=== PATIENT | female | born 1985 | race Caucasian/White ===

== ENCOUNTER 2021-05-21 10:43 | Outpatient (CLI) | payer OTHER ==
--- NOTE | 2021-05-21 15:03 | MRI Report ---
PROCEDURE: Lumbar Spine W/O INDICATIONS: LOW BACK PAIN TECHNIQUE: Noncontrast sagittal T1 spin echo and T2 fast echo, sagittal STIR, axial T1 and T2 fast spin echo thr ough the lumbar spine. In cases with scoliosis, additional coronal T2 fast spin echo may be performe d. COMPARISON: None. FINDINGS: Image quality: Motion artifact is noted. Alignment and Curvature: There is normal bony alignment. Bone Marrow: Marrow is of normal overall signal. Scattered foci of T1-weighted hyperintensity and T2-weighted hyperintensity are seen, without increased STIR signal. 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 No acute vertebral body compression fractures. Spinal Cord: Conus medullaris terminates at the L1-L2 level. Visualized cord demonstrates normal si gnal and size. Paraspinous Soft Tissues: No paravertebral masses. T12-L1: Normal in appearance. L1-L2: Normal in appearance. L2-L3: Normal in appearance. L3-L4: No significant abnormality is seen. L4-L5: The disc height is well-preserved. There is loss of disc signal seen. Note is made of an heike ular fissure posteriorly. Mild disc bulge is seen, which is eccentric to the left. Mild facet hyper trophy is seen. Mild bilateral neural foraminal narrowing is seen. No significant central canal na rrowing is seen. L5-S1: Mild loss of disc height and disc signal are seen. Reactive marrow endplate changes are see n, which are on hypointense on T1-weighted and hyperintense T2-weighted imaging, with associated in creased STIR signal. These imaging findings are most consistent with endplate edema (Modic type 1 young nge). Moderate disc bulge is seen, with a central/right disc extrusion, with superior migration of t he disc material. The disc extrusion measures 1.7 cm craniocaudal in total. There is a smaller appare nt sequestered fragment seen within the extruded material that measures up to 1 cm. An associated heike ular fissure can be seen. There is at least moderate bilateral neuroforaminal narrowing seen. Moderat e central canal narrowing is seen. Mass effect can be seen upon the regional nerve roots, although mo st notably upon the transiting right S1 nerve root. IMPRESSION: At the L5-S1 level, there is a prominent central/right disc extrusion, with apparent seq uestered disc fragment. There is associated mass effect, including upon the right S1 nerve root. Reviewed by: Antonio Perez MD on 05/21/2021 2:01 PM [facility] Approved by: Antonio Perez MD on 05/21/2021 2:01 PM [facility] Station ID: [id number]
== END 2021-05-21 10:44 | disposition home or self-care (01) ==
LOC: DI 10:43
PROVIDERS: ATTEND Family Medicine
DX: M47.816 Spondylosis without myelopathy or radiculopathy, lumbar region (principal); M51.36 Other intervertebral disc degeneration, lumbar region; M48.061 Spinal stenosis, lumbar region without neurogenic claudication; M51.27 Other intervertebral disc displacement, lumbosacral region; M48.07 Spinal stenosis, lumbosacral region